=== PATIENT | female | born 1960 | race Caucasian/White ===

== ENCOUNTER 2016-12-04 14:14 | Observation (INO) | payer BC ==
[2016-12-04] MEDS ORDERED: Aspirin Low Dose CHEW TAB* 81 MG PO ONE (14:29)
--- NOTE | 2016-12-04 15:10 | RAD ---
Indication: Chest tightness, palpitations. History of tobacco use. Comparison: February 25, 2016 CT abdomen and July 07, 2014 chest radiograph. Technique: Upright AP 1452 hours Report: Large body habitus limits image quality. No alveolar consolidation, focal pulmonary lesion, pleural effusion, pneumothorax. The heart, pulmonary vasculature, and mediastinal contours are unremarkable. IMPRESSION: No evidence for acute intrathoracic disease.
[2016-12-04 15:31] LABS: Hematocrit 43 % (35-47); Hemoglobin 14.3 g/dl (12.0-16.0); Mean Corpuscular HGB Conc 33 g/dl (31-36); Mean Corpuscular Hemoglobin 29 pg (27-31); Mean Corpuscular Volume 89 fL (80-97); Mean Platelet Volume 7 um3 (7.4-10.4); Red Blood Count 4.89 10^6/ul (4.0-5.4); Red Cell Distribution Width 14 % (10.5-15); White Blood Count 8.6 10^3/ul (3.5-10.8)
[2016-12-04 15:46] LABS: Albumin 4.2 g/dL (3.2-5.2); BUN/Creatinine Ratio 18.6 (8-20); Calcium 9.3 mg/dL (8.6-10.3); EGFR African American 110.9 (>60); EGFR Non-African American 86.2 (>60); Potassium 3.9 mmol/L (3.5-5.0); Total Protein 7.3 g/dL (6.4-8.9)
[2016-12-04 15:47] LABS: Globulin 3.1 g/dL (2-4); Total Bilirubin 0.5 mg/dL (0.2-1.0); Troponin I 0.01 ng/mL (<0.04)
[2016-12-04 16:24] LABS: TSH (Thyroid Stimulating Horm) 1.55 mcIU/mL (0.34-5.60)
[2016-12-04] MEDS ORDERED: Ondansetron INJ* 2 MG/ML VIAL IV PRN (16:25)
[2016-12-04] MEDS ORDERED: Acetaminophen TAB* 325 MG PO PRN (16:29)
[2016-12-04 17:45] LABS: T4 7.47 mcg/mL (6.09-12.23)
--- NOTE | 2016-12-04 18:05 | ED ---
Ludwin Duncan Billy, scribed for Chi Segura MD on 12/04/16 at 1453 . Palpitations / Dysrhythmia - HPI Summary HPI Summary: Patient is a 56 year-old female coming to [facility] for evaluation of palpitations for the last few days. She has a history of palpitations, but she states that her current episodes have been accompanied with mild chest pressure. She also reports feeling lightheaded and mild SOB. She has been exerting herself, clearing shields/trees at home this week. She expressed concerns about high caffeine intake. - History of Current Complaint Chief Complaint: EDDysrhythmPalp Time Seen by Provider: 12/04/16 14:27 Hx Obtained From: Patient Onset/Duration: Gradual Onset, Lasting Days Timing: Intermittent Episodes Lasting: Severity Initially: Moderate Severity Currently: Moderate Character: Irregular Aggravating: Nothing Alleviating: Nothing Associated Signs & Symptoms: Lightheadedness, Chest Pain, Shortness of Breath - Allergy/Home Medications Allergies/Adverse Reactions: Allergies Allergy/AdvReac Type Severity Reaction Status Date / Time Azithromycin [From Zithromax] Allergy Unknown Verified 08/20/16 11:55 Reaction Details PMH/Surg Hx/FS Hx/Imm Hx Endocrine/Hematology History: Denies: Hx Diabetes Cardiovascular History: Denies: Hx Congestive Heart Failure, Hx Hypertension History: Denies: Hx Dialysis, Hx Renal Disease - Surgical History Surgery Procedure, Year, and Place: D&C, 2012, [facility] Infectious Disease History: Denies: Traveled Outside the [place] in Last 30 Days - Family History Known Family History: Positive: Other - colon cancer - Social History Alcohol Use: Rare Substance Use Type: Reports: None Hx Tobacco Use: Yes Smoking Status (MU): Unknown if Ever Smoked Review of Systems Negative: Fever, Chills Negative: Erythema Negative: Ear Ache Positive: Palpitations, Chest Pain Positive: Shortness Of Breath Negative: Abdominal Pain, Vomiting, Nausea Negative: dysuria, flank pain Negative: Myalgia, Edema Negative: Rash Neurological: Other - lightheaded All Other Systems Reviewed And Are Negative: Yes Physical Exam - Summary Physical Exam Summary: Constitutional: Well-developed, Well-nourished, Obese, Alert. (-) Distressed Skin: Warm, Dry HENT: Normocephalic; Atraumatic Eyes: Conjunctiva normal Neck: Musculoskeletal ROM normal neck. (-) JVD, (-) Stridor, (-) Tracheal deviation Cardio: Rate and rhythm irregular, Heart sounds normal; Intact distal pulses; The pedal pulses are 2+ and symmetric. Radial pulses are 2+ and symmetric. (-) Murmur Pulmonary/Chest wall: Effort normal. (-) Respiratory distress, (-) Wheezes, (-) Rales Abd: Soft, (-) Tenderness, (-) Distension, (-) Guarding, (-) Rebound Musculoskeletal: (-) Edema Lymph: (-) Cervical adenopathy Neuro: Alert, Oriented x3 Psych: Mood and affect Normal Triage Information Reviewed: Yes Vital Signs On Initial Exam: Initial Vitals Temp Pulse Resp BP Pulse Ox 97.8 F 84 18 155/89 98 12/04/16 14:16 12/04/16 14:16 12/04/16 14:16 12/04/16 14:16 12/04/16 14:16 Vital Signs Reviewed: Yes Diagnostics - Vital Signs Vital Signs Temp Pulse Resp BP Pulse Ox 12/04/16 14:16 97.8 F 84 18 155/89 98 - Laboratory Result Diagrams: 12/04/16 15:15 12/04/16 15:15 Lab Statement: Any lab studies that have been ordered have been reviewed, and results considered in the medical decision making process. - Radiology CXR Xray Interpretation: No Acute Changes Radiology Interpretation Completed By: Radiologist - EKG 1430 EKG Interpretation: NSR 70 bpm, no STEMI Course/Dx - Course Assessment/Plan: This is a 56 year-old female coming to [facility] for evaluation of palpitations. EKG in the ED shows NSR with no STEMI. CXR shows no acute findings. Patient was given ASA here in the ED. Patient care discussed with hospitalist services, who admitted the patient to their services. All medications reviewed this visit. - Diagnoses Provider Diagnoses: Dyspnea on exertion, rule out acute coronary syndrome, irregular pulse - Physician Notifications Discussed Care Of Patient With: David Sandoval NP (hospitalist) at 1600: accepts admission. Discharge - Discharge Plan Condition: Stable Disposition: ADMITTED TO [facility] documentation as recorded by the Ludwin watson Billy accurately reflects the service I personally performed and the decisions made by me, Chi Segura MD.
--- NOTE | 2016-12-04 19:36 | HP ---
ATTENDING PHYSICIAN'S ADDENDUM NOW INCLUDED ON THIS REPORT HISTORY AND PHYSICAL: DATE OF ADMISSION: 12/04/16 PRIMARY CARE PROVIDER: Dr. David Gould. ATTENDING PHYSICIAN WHILE IN THE HOSPITAL: Dr. Елена Javier * (report dictated by David Sandoval NP) CHIEF COMPLAINT: 1. Chest tightness. 2. Palpitations. HISTORY OF PRESENT ILLNESS: Ms. Patel is a 56-year-old female patient, she has only history of diverticulosis. She does have a former history of smoking. She comes in today stating that she has been having palpitations off and on for the last several weeks. She has had this in the past 2 years ago and underwent workup, according to her which was all negative, performed a stress test, echo, and a Holter monitor. She states that the palpitations have been getting worse over the last 3 to 4 days and in the last 24 to 48 hours, she has had constant chest tightness. She states that the tightness does not radiate into her jaw or down her arms, and no associated nausea or vomiting. No association of diaphoresis or shortness of breath. She says she has not had any recent illnesses. No recent nausea or vomiting. No diarrhea. No recent fevers. No recent trips or travel. There has been no leg tenderness or calf tenderness. The patient states that discomfort has been constant and has not gotten worse with any exertion. She states that she has been trying to clear some shields with her in last several days and since then she has had constant discomfort in her chest. She came in and was evaluated by Dr. Segura, who was concerned that this may represent acute coronary syndrome, so the hospitalist service was asked to evaluate for admission. PAST MEDICAL HISTORY: Significant for diverticulosis. PAST SURGICAL HISTORY: She has had: 1. Tonsillectomy. 2. D and C. HOME MEDICATIONS: Denied. ALLERGIES TO MEDICATIONS: Include AZITHROMYCIN. FAMILY HISTORY: Reviewed and noncontributory. She says that her parents did not have any history of coronary artery disease and both her parents are still alive and well. SOCIAL HISTORY: She is a former smoker. She quit about 15 to 20 years ago. She is , with children. Surrogate decision maker is her . REVIEW OF SYSTEMS: There is no documented fever. She denied having any significant weight change. There was no double vision. There was no ear discharge. No rhinorrhea. No sore throat. No thyroid enlargement. There was chest pressure from my HPI. There was no shortness of breath. No orthopnea. No nocturnal dyspnea. There was no abdominal pain. No nausea, no vomiting. No dysuria, no frequency. No loss of consciousness. No pruritus and no skin ulcerations. Review of 14 systems completed, all others negative. PHYSICAL EXAMINATION GENERAL: At this time, Ms. Patel is a 56-year-old female patient. She does not appear to be in any acute distress. She is morbidly obese. She is sitting in the ER stretcher. VITAL SIGNS: Reveal blood pressure of 149/81 with a pulse of 79, respirations 18, O2 sat 98%, and temperature 98.1. HEENT: Head is atraumatic, normocephalic. Eyes: EOMs are intact. Sclerae anicteric and not pale. Throat: Oral mucosa appears to be moist. No oropharyngeal erythema. NECK: Supple. LUNGS: Clear to auscultation bilaterally. No wheezes, rales, or rhonchi. HEART: Sounds S1 and S2. Regular rate and rhythm. No murmurs, rubs, or gallops. ABDOMEN: Soft, flat, and nontender. Bowel sounds are present. EXTREMITIES: Pulses were 2+ throughout. She is able to move all 4 extremities with 5/5 strength. NEUROLOGIC: The patient is awake, alert, and oriented x3. Tongue was midline. Bicycle Subassembler were equal. No gross focal deficits. SKIN: Grossly intact. DIAGNOSTIC STUDIES/LAB DATA: Revealed WBC of 8.6, RBC of 4.89, hemoglobin 14.3 , hematocrit of 43, platelet count of 307. Sodium 138, potassium 3.9, chloride 105, bicarb 26, BUN 13, creatinine 0.70, glucose 86, lactate 0.7, calcium 9.3. Total bili 0.5, AST 13, ALT 11, alk phos 75. Troponin 0.01. Albumin of 4.2. She had a chest x-ray obtained today, which revealed no evidence for acute intrathoracic disease. The EKG shows a normal sinus rhythm, rate of 70. No ST elevations or T-wave inversions were noted. Old medical records were reviewed. ASSESSMENT AND PLAN: Ms. Patel is a 56-year-old female patient, coming into the ER today with complaints of chest discomfort, which had been constant for 3 days. She was evaluated in the ED, there was concern that this might represent acute coronary syndrome and the hospitalist service was asked to evaluate for admission. She will be admitted under observation status for: 1. Chest pain. At this point, again the story is atypical, she has one known risk factor, former smoker. I think at this point, because she has been having palpitations, I would like to monitor her overnight on telemetry, cycle her troponins, I am going to go ahead and do a stress test in the morning and we will continue to follow. If this is negative, she will follow up with her primary and get set up for a Holter monitor and an echo if they are deemed appropriate. I did order aspirin daily and she received one in the ER. 2. Question of hypertension. She states that her blood pressure has been creeping up in her own words. The blood pressure here is 149/81, it has been in the 150s, we will monitor, and if we need to, we will start her on antihypertensive and she can follow with her primary. 3. History of diverticulosis, not an active issue. She can follow with the primary. 4. DVT prophylaxis. She is moderate risk, will be placed on heparin subcu. 5. Code status. Full code. 6. Fluids, electrolytes, and nutrition. She can have a heart-healthy diet and she will be n.p.o. after midnight. TIME SPENT: On this admission 60 minutes, greater than half the time was spent [id number] with the patient obtaining my history and physical; other half the time was spent going over the plan of care with the patient and implementing the plan of care. I did discuss the plan of care with my attending, Dr. Javier; she is in agreement. DAVID SANDOVAL NP ADDENDUM: Ms. Patel is a 56-year-old female, who presented to the hospital with 3 days' complaints of chest pain. Her EKG is unremarkable and troponin is negative. The patient is going to be placed on observation for stress test in the morning. For further details of the patient's presentation and plan, please see history and physical dictated by David Sandoval NP, on 12/04/16, with which I agree. ЕЛЕНА JAVIER MD CC: Dr. David Gould* [id number]/CPS #: [id number]/CPS #: [id number] HERMILA
--- NOTE | 2016-12-04 20:50 | HP ---
HISTORY AND PHYSICAL:* ADDENDUM: Ms. Patel is a 56-year-old female, who presented to the hospital with 3 days' complaints of chest pain. Her EKG is unremarkable and troponin is negative. The patient is going to be placed on observation for stress test in the morning. For further details of the patient's presentation and plan, please see history and physical dictated by David Sandoval NP, on 12/04/16, with which I agree. [id number]/[facility] #: [id number] HERMILA
[2016-12-04] MEDS: Heparin VIAL(*) 5000 UNITS/ML VIAL (FIVE THOUSAND) SUBCUT SCH (21:36)
[2016-12-05 05:02] LABS: Hematocrit 41 % (35-47); Hemoglobin 13.5 g/dl (12.0-16.0); Mean Corpuscular HGB Conc 33 g/dl (31-36); Mean Corpuscular Hemoglobin 29 pg (27-31); Mean Corpuscular Volume 89 fL (80-97); Mean Platelet Volume 7 um3 (7.4-10.4); Red Blood Count 4.61 10^6/ul (4.0-5.4); Red Cell Distribution Width 14 % (10.5-15); White Blood Count 9.7 10^3/ul (3.5-10.8)
[2016-12-05 05:21] LABS: BUN/Creatinine Ratio 17.6 (8-20); Calcium 9.1 mg/dL (8.6-10.3); EGFR Non-African American 80.9 (>60); HDL Cholesterol 36.4 mg/dL; Potassium 3.8 mmol/L (3.5-5.0)
[2016-12-05] MEDS: Heparin VIAL(*) 5000 UNITS/ML VIAL (FIVE THOUSAND) SUBCUT SCH ×3 (06:04→20:51)
[2016-12-05] MEDS: Aspirin Low Dose CHEW TAB* 81 MG PO SCH (09:13)
--- NOTE | 2016-12-05 16:05 | PN ---
Subjective Date of Service: 12/05/16 Interval History: This is an otherwise healthy but obese 56 yo female who presented with complaints of chest tightness and palpitations yesterday. Patient reports similar symptoms a couple of years ago and had a reportedly negative workup at that time. Patient was admitted for stress testing. Unfortunately, only the resting portion was completed today and due to her size will need to stay for the exercise portion tomorrow. Patient reported some mild palpitations last night which did not correspond to changes on telemetry at that time. She has otherwise been asx today. Objective Active Medications: Acetaminophen (Tylenol Tab*) 650 mg PO Q6H PRN PRN Reason: FEVER/PAIN Aspirin (Aspirin Low Dose Tab*) 81 mg PO DAILY [facility] Last Admin: 12/05/16 09:13 Dose: 81 mg Heparin Sodium (Porcine) (Heparin Vial(*)) 5,000 units SUBCUT Q8HR [facility] Last Admin: 12/05/16 06:04 Dose: Not Given Ondansetron HCl (Zofran Inj*) 4 mg IV Q6H PRN PRN Reason: NAUSEA Vital Signs: Temp Pulse Resp BP Pulse Ox 98.4 F 72 16 149/96 95 12/05/16 14:47 12/05/16 14:47 12/05/16 14:47 12/05/16 14:47 12/05/16 14:47 Oxygen Devices in Use Now: None Appearance: Well appearing, in NAD Neck: NL Appearance and Movements; NL JVP Respiratory: Symmetrical Chest Expansion and Respiratory Effort, Clear to Auscultation Cardiovascular: NL Sounds; No Murmurs; No JVD, RRR Abdominal: NL Sounds; No Tenderness; No Distention Extremities: No Edema Skin: No Rash or Ulcers Neurological: Alert and Oriented x 3 Result Diagrams: 12/05/16 04:30 12/05/16 04:30 Diagnostic Imaging: EKG - NSR CXR - NAD Assess/Plan/Problems-Billing Assessment: This is an otherwise healthy but obese 56 yo female who presented with c/o palpitations. - Patient Problems (1) Palpitations Comment: No telemetry changes, NSR on EKG No lab abnormalities, trop neg x 3 Reportedly nl prior w/u for similar symptoms Pend stress portion of stress test (2) Morbid obesity Comment: BMI 43 (3) Full code status (4) DVT prophylaxis Status and Disposition: Observation. Anticipate discharge tomorrow following stress test
[2016-12-06] MEDS: Heparin VIAL(*) 5000 UNITS/ML VIAL (FIVE THOUSAND) SUBCUT SCH (05:47)
[2016-12-06] MEDS: Aspirin Low Dose CHEW TAB* 81 MG PO SCH (11:26)
--- NOTE | 2016-12-06 12:17 | RAD ---
Edited for charges. INDICATION: Chest pain. COMPARISON: There are no prior studies available for comparison. Technique: A stress myocardial perfusion study was performed on December 06, 2016. Under the direction of Dr. Marvin, the patient was exercised to a peak heart rate of 141 beats per minute which was 91% of the maximum predicted heart rate. Subsequently the patient was given intravenous injection of 25.6 mCi of technetium 99m tetrofosmin and the heart was imaged in multiple projections. A resting study was performed on December 05, 2016. The patient was given an intravenous injection of 25.3 mCi of technetium 99m tetrofosmin and the heart was imaged in multiple projections. Images were reconstructed in the axial, sagittal and coronal planes and in a 3- D format. FINDINGS: There appears to be normal wall motion and myocardial thickening. The left ventricular ejection fraction was calculated to be 63% after stress and 62% after rest.. Review of the images demonstrates mild decreased activity in the anterior wall on both the post exercise and resting images which resolves on the attenuation corrected images most consistent with artifact. There is otherwise normal distribution of radiopharmaceutical. IMPRESSION: NO EVIDENCE FOR INFARCT OR ISCHEMIA. ASSESSMENT: Low risk. Based on imaging criteria from ACC/AHA 2002 Guideline Update for the Management of Patients With Chronic Stable Angina Table 23. Noninvasive Risk Stratification. MTDD
[2016-12-06 12:29] VITALS: BP 120/82
--- NOTE | 2016-12-06 21:47 | DS ---
DISCHARGE SUMMARY: DATE OF ADMISSION: 12/04/16 DATE OF DISCHARGE: 12/06/16 PRIMARY CARE PROVIDER: Dr. Gould. DISCHARGING PROVIDER: SIMRAN Ramos SUPERVISING PHYSICIAN: DO Paloma Kim (DICTATED BY SIMRAN RAMOS) PRIMARY DISCHARGE DIAGNOSIS: Palpitations. SECONDARY DISCHARGE DIAGNOSIS: Obesity. DISCHARGE MEDICATIONS: None. MEDICATION CHANGES: None. HOSPITAL IMAGIN. Chest x-ray, 12/04/16, demonstrates no acute process. 2. Nuclear stress test is read as a low risk study without evidence for infarct or ischemia. 3. EKG demonstrates a normal sinus rhythm on 3 separate occasions. HOSPITAL COURSE: This is an otherwise healthy, but morbidly obese 56-year-old female who presented to the emergency department with complaints of palpitation and chest tightness. The patient had been engaging in heavy physical activity for the last several days, but her symptoms occurred while at rest. Denied associated dyspnea. Initial EKG showed a normal sinus rhythm and her initial labs were unremarkable including a negative D-Dimer and troponin without electrolyte abnormalities. The patient was subsequently admitted to observation status on continuous telemetry monitoring and underwent serial troponins. There were no dysrhythmias appreciated on telemetry during her hospital stay and serial troponins remained negative. The patient underwent a nuclear stress testing and due to internal conflicts, this test was delayed for approximately 24 hours, but eventually was recognized as a low-risk study. The patient did have a couple of episodes of palpitations, but lesser severity than what brought her in during her hospital stay and there was nothing appreciated on telemetry monitoring at that time. DISPOSITION: The patient is being discharged to home without new home medications. Recommend followup with her primary care provider regarding this hospital admission and consider an event monitor in the future. Of note, the patient has had similar symptoms in the past and had reportedly normal workup including echocardiogram and Holter monitor. SIMRAN RAMOS CC: Dr. Gould* [id number]/[facility] #: [id number] [facility]
== END 2016-12-06 13:02 | disposition home or self-care (01) ==
LOC: ED 14:14 → MEDTELE 16:23
PROVIDERS: ADMIT Internal Medicine; ATTEND Hospitalist
DX: R00.2 Palpitations (principal); E66.01 Morbid (severe) obesity due to excess calories; Z68.41 Body mass index [BMI] 40.0-44.9, adult; R06.02 Shortness of breath; K57.90 Diverticulosis of intestine, part unspecified, without perforation or abscess without bleeding; Z87.891 Personal history of nicotine dependence; Z88.1 Allergy status to other antibiotic agents; Z79.899 Other long term (current) drug therapy
CPT/HCPCS: 36415; 71010; 78452; 80048; 80053; 80061; 83036; 83605; 84436; 84443; 84484; 85025; 85379; 85610; 93005; 93017; 96372; 99284; A9270-GY; A9502; G0378; J1644

== ENCOUNTER 2017-12-22 02:12 | Emergency (ER) | payer BC ==
[2017-12-22 02:57] LABS: ABS Basophils 0.1 10^3/ul (0-0.2); ABS Eosinophils 0.2 10^3/ul (0-0.6); ABS Lymphocytes 2.7 10^3/ul (1.0-4.8); ABS Monocytes 0.7 10^3/ul (0-0.8); ABS Neutrophils 6.2 10^3/ul (1.5-7.7); ABS Nucleated RBC 0 10^3/ul; Eosinophil % 2.4 % (0-6); Hematocrit 42 % (35-47); Lymphocyte % 26.9 % (25-47); Mean Corpuscular HGB Conc 33 g/dl (31-36); Mean Corpuscular Hemoglobin 30 pg (27-31); Mean Corpuscular Volume 89 fL (80-97); Mean Platelet Volume 6.9 um3 (7.4-10.4); Nucleated Red Blood Cells % 0.1; Platelet Count 301 10^3/ul (150-450); Red Cell Distribution Width 14 % (10.5-15); White Blood Count 9.9 10^3/ul (3.5-10.8)
[2017-12-22 03:27] LABS: EGFR Non-African American 74.7 (>60)
--- NOTE | 2017-12-22 04:00 | ED ---
Jorge Luis Duncan Julia, scribed for Rodolfo Morris MD on 12/22/17 at 0233 . Palpitations / Dysrhythmia - HPI Summary HPI Summary: This patient is a 57 year old M presenting to [facility] with a chief complaint of left anterior chest pressure since yesterday with a zinging sensation in her left jaw and left arm. Patient denies SOB and HOLGUIN. She additionally reports intermittent heart palpations that she experiences at baseline but has increased over the past few weeks. Palpatations are described as pauses. She reports recent strenuous yard work. She also reports increased stress. - History of Current Complaint Chief Complaint: EDDysrhythmPalp Time Seen by Provider: 12/22/17 02:23 Hx Obtained From: Patient Onset/Duration: Lasting Days Character: Skipped Beats Aggravating: Other - stress Associated Signs & Symptoms: Chest Pain Related History: Similar Episode/Dx as - palpitations - Allergy/Home Medications Allergies/Adverse Reactions: Allergies Allergy/AdvReac Type Severity Reaction Status Date / Time azithromycin [From Zithromax] AdvReac Unknown Verified 12/22/17 02:37 Reaction Details PMH/Surg Hx/FS Hx/Imm Hx Endocrine/Hematology History: Denies: Hx Diabetes Cardiovascular History: Denies: Hx Angina, Hx Congestive Heart Failure, Hx Coronary Artery Disease, Hx Hypercholesterolemia, Hx Hypertension, Hx Myocardial Infarction, Hx Valvular Heart Disease Respiratory History: Denies: Hx Asthma, Hx Chronic Obstructive Pulmonary Disease (COPD) History: Denies: Hx Dialysis, Hx Renal Disease Sensory History: Reports: Hx Contacts or Glasses Denies: Hx Hearing Aid Opthamlomology History: Reports: Hx Contacts or Glasses - Surgical History Surgery Procedure, Year, and Place: D&C, 2012, [facility] - Immunization History Date of Tetanus Vaccine: no Date of Influenza Vaccine: no Infectious Disease History: No Infectious Disease History: Denies: Traveled Outside the [place] in Last 30 Days - Family History Known Family History: Positive: Other - colon cancer - Social History Alcohol Use: Rare Substance Use Type: Reports: None Hx Tobacco Use: Yes Smoking Status (MU): Former Smoker Review of Systems Positive: Palpitations, Chest Pain Negative: Shortness Of Breath Neurological: Other - "zingling" to left jaw and left arm All Other Systems Reviewed And Are Negative: Yes Physical Exam - Summary Physical Exam Summary: Appearance: Well-appearing, Well-nourished, lying in bed comfortably Skin: Warm, dry, no obvious rash Eyes: sclera anicteric, no conjunctiva pallor ENT: mucous membranes moist, pharynx appears normal Neck: Supple, nontender Respiratory: Clear to auscultation, no signs of respiratory distress Cardiovascular: Occasional premature beats p. No murmurs. Normal distal pulses in tibial and radial bilaterally. Abdomen: Soft, nontender, normal active bowel sounds present Musculoskeletal: Normal, Strength/ROM Intact Neurological: A&Ox3, awake and alert, mentation is normal, speech is fluent and appropriate Psychiatric: affect is normal, does not appear anxious or depressed Triage Information Reviewed: Yes Vital Signs On Initial Exam: Initial Vitals Temp Pulse Resp BP Pulse Ox 98.0 F 84 20 185/103 99 12/22/17 02:15 12/22/17 02:15 12/22/17 02:15 12/22/17 02:15 12/22/17 02:15 Vital Signs Reviewed: Yes Diagnostics - Vital Signs Vital Signs Temp Pulse Resp BP Pulse Ox 12/22/17 02:15 98.0 F 84 20 185/103 99 - Laboratory Lab Results: Lab Results 12/22/17 12/22/17 12/22/17 Range/Units 02:45 02:45 02:45 WBC 9.9 (3.5-10.8) 10^3/ul RBC 4.70 (4.0-5.4) 10^6/ul Hgb 14.0 (12.0-16.0) g/dl Hct 42 (35-47) % MCV 89 (80-97) fL MCH 30 (27-31) pg MCHC 33 (31-36) g/dl RDW 14 (10.5-15) % Plt Count 301 (150-450) 10^3/ul MPV 6.9 L (7.4-10.4) um3 Neut % (Auto) 62.6 (38-83) % Lymph % (Auto) 26.9 (25-47) % [place] % (Auto) 7.2 H (0-7) % Eos % (Auto) 2.4 (0-6) % Baso % (Auto) 0.9 (0-2) % Absolute Neuts (auto) 6.2 (1.5-7.7) 10^3/ul Absolute Lymphs (auto) 2.7 (1.0-4.8) 10^3/ul Absolute Monos (auto) 0.7 (0-0.8) 10^3/ul Absolute Eos (auto) 0.2 (0-0.6) 10^3/ul Absolute Basos (auto) 0.1 (0-0.2) 10^3/ul Absolute Nucleated RBC 0 10^3/ul Nucleated RBC % 0.1 Sodium 140 (139-145) mmol/L Potassium 4.2 (3.5-5.0) mmol/L Chloride 106 (101-111) mmol/L Carbon Dioxide 27 (22-32) mmol/L Anion Gap 7 (2-11) mmol/L BUN 15 (6-24) mg/dL Creatinine 0.79 (0.51-0.95) mg/dL Est GFR ( Amer) 96.1 (>60) Est GFR (Non-Af Amer) 74.7 (>60) BUN/Creatinine Ratio 19.0 (8-20) Glucose 113 H (70-100) mg/dL Lactic Acid 1.2 (0.5-2.0) mmol/L Calcium 9.0 (8.6-10.3) mg/dL Total Bilirubin 0.30 (0.2-1.0) mg/dL AST 13 (13-39) U/L ALT 10 (7-52) U/L Alkaline Phosphatase 70 (34-104) U/L Troponin I 0.00 (<0.04) ng/mL Total Protein 6.7 (6.4-8.9) g/dL Albumin 4.0 (3.2-5.2) g/dL Globulin 2.7 (2-4) g/dL Albumin/Globulin Ratio 1.5 (1-3) Result Diagrams: 12/22/17 02:45 12/22/17 02:45 Lab Statement: Any lab studies that have been ordered have been reviewed, and results considered in the medical decision making process. - EKG 0241 Cardiac Rate: NL EKG Rhythm: Sinus Rhythm - at 74 BPM EKG Interpretation: see comparison EKG Comparison: Other - P waves, QRS complex, and T waves are within normal limits, T waves and intervals are normal, no ischemic changes. This is a normal EKG Course/Dx - Course Assessment/Plan: 57 y/o woman with morbid obesity, prior h/o palpitations presents with exacerbation of the latter. These are clearly premature beats, noted on exam and are of no consequence. However she also developed during the day some vague left upper chest discomfort felt to be very atypical for anginal type pain. EKG and trop are negative, pt is safe for discharge home at this point. - Diagnoses Provider Diagnoses: Atypical chest pain, Palpitations Discharge - Sign-Out/Discharge Documenting (check all that apply): Discharge/Admit/Transfer - Discharge Plan Condition: Good Disposition: HOME Patient Education Materials: Noncardiac Chest Pain (ED) Referrals: David Gould MD [Primary Care Provider] - - Billing Disposition and Condition Condition: GOOD Disposition: HOME The documentation as recorded by the Jorge Luis watson Julia accurately reflects the service I personally performed and the decisions made by me, Rodolfo Morris MD.
[2017-12-22 04:04] VITALS: BP 122/90
== END 2017-12-22 04:02 | disposition home or self-care (01) ==
LOC: ED 02:12
DX: R07.89 Other chest pain (principal); R00.2 Palpitations; E66.01 Morbid (severe) obesity due to excess calories; Z88.3 Allergy status to other anti-infective agents; Z87.891 Personal history of nicotine dependence
CPT/HCPCS: 36415; 80053; 83605; 84484; 85025; 93005; 99282

== ENCOUNTER 2019-06-26 17:04 | Emergency (ER) | payer BC ==
[2019-06-26 17:15] VITALS: BP 148/87
--- NOTE | 2019-06-26 17:40 | UC ---
Complaint Female HPI - HPI Summary HPI Summary: pain and burning with urination began this morning--no fevers chills nausea vomiting or back pain - History Of Current Complaint Chief Complaint: UCGU Stated Complaint: POSS UTI Time Seen by Provider: 06/26/19 17:10 Hx Obtained From: Patient ?: No Onset/Duration: Lasting Days - 1, Still Present Timing: Constant Pain Intensity: 3 Pain Scale Used: 0-10 Numeric Character: Burning Aggravating Factor(s): Urination Alleviating Factor(s): Nothing Associated Signs And Symptoms: Positive: Negative - Allergies/Home Medications Allergies/Adverse Reactions: Allergies Allergy/AdvReac Type Severity Reaction Status Date / Time azithromycin [From Zithromax] AdvReac Unknown Verified 06/26/19 17:15 Reaction Details Home Medications: Home Medications Magnesium 06/26/19 [History] Multivitamin [Multivitamins] 1 each PO DAILY 06/26/19 [History Confirmed ] PMH/Surg Hx/FS Hx/Imm Hx Previously Healthy: No Cardiovascular History: Hypertension - Surgical History Surgical History: Yes Surgery Procedure, Year, and Place: D&C, 2013, [facility], tonsillectomy - Family History Known Family History: Positive: Other - colon cancer - Social History Occupation: Works From/At Home Lives: With Family Alcohol Use: None Substance Use Type: None Smoking Status (MU): Former Smoker When Did the Patient Quit Smoking/Using Tobacco: 20 YRS AGO Review of Systems All Other Systems Reviewed And Are Negative: Yes Constitutional: Positive: Negative Skin: Positive: Negative Eyes: Positive: Negative ENT: Positive: Negative Respiratory: Positive: Negative Cardiovascular: Positive: Negative Gastrointestinal: Positive: Negative Genitourinary: Positive: Dysuria, Urgency Motor: Positive: Negative Neurovascular: Positive: Negative Musculoskeletal: Positive: Negative Neurological: Positive: Negative Psychological: Positive: Negative Is Patient Immunocompromised?: No Physical Exam Triage Information Reviewed: Yes Appearance: Well-Appearing, No Pain Distress, Well-Nourished Vital Signs: Initial Vital Signs Temp 100.4 F 06/26/19 17:11 Pulse 81 06/26/19 17:11 Resp 18 06/26/19 17:11 BP 148/87 06/26/19 17:11 Pulse Ox 99 06/26/19 17:11 Vital Signs Reviewed: Yes Eye Exam: Normal Eyes: Positive: Conjunctiva Clear ENT Exam: Normal ENT: Positive: Normal ENT inspection, Hearing grossly normal. Negative: Trismus , Muffled voice, Hoarse voice Dental Exam: Normal Neck exam: Normal Neck: Positive: Supple, Nontender Respiratory Exam: Normal Respiratory: Positive: Chest non-tender, No respiratory distress, No accessory muscle use Cardiovascular Exam: Normal Cardiovascular: Positive: RRR, Pulses Normal, Brisk Capillary Refill Abdominal Exam: Normal Abdomen Description: Positive: Nontender, Soft. Negative: CVA Tenderness (R), CVA Tenderness (L) Musculoskeletal Exam: Normal Musculoskeletal: Positive: Strength Intact, ROM Intact Neurological Exam: Normal Neurological: Positive: Alert, Muscle Tone Normal Psychological Exam: Normal Skin Exam: Normal Complaint Female Dx - Course Course Of Treatment: increase fluids, macrobid, pyridium, culture urine, follow bp with pcp - Differential Dx/Diagnosis Provider Diagnosis: UTI (urinary tract infection), Hypertension Discharge ED - Sign-Out/Discharge Documenting (check all that apply): Patient Departure All imaging exams completed and their final reports reviewed: No Studies - Discharge Plan Condition: Stable Disposition: HOME Prescriptions: Nitrofurantoin Monohyd/M-Cryst [Macrobid 100 mg Capsule] 100 mg PO BID #10 cap Phenazopyridine TAB* [Pyridium 100 mg TAB*] 100 mg PO TID PRN #9 tab PRN Reason: urinary pain/burning Patient Education Materials: Urinary Tract Infection in Women (ED), Hypertension (ED) Referrals: Nevin Bravo MD [Primary Care Provider] - 2 Weeks - Billing Disposition and Condition Condition: STABLE Disposition: Home
== END 2019-06-26 17:52 | disposition home or self-care (01) ==
LOC: UCEAST 17:04
DX: N39.0 Urinary tract infection, site not specified (principal); I10 Essential (primary) hypertension; Z88.1 Allergy status to other antibiotic agents; Z87.891 Personal history of nicotine dependence
CPT/HCPCS: 81003; 87077; 87086; 87186; 99212; G0463

== ENCOUNTER 2019-07-04 08:41 | Emergency (ER) | payer BC ==
[2019-07-04 08:59] VITALS: BP 144/94
--- NOTE | 2019-07-04 09:30 | UC ---
Complaint Female HPI - HPI Summary HPI Summary: Patient is a 5-year-old female presenting with frequency, urgency, and hematuria that she states began last night. Also notes "burning discomfort" with urination. Patient states she was seen here 8 days ago for same symptoms and treated with Macrobid for UTI caused by Escherichia coli. States her symptoms resolved while taking it but are now "back and worse than before." Patient denies abdominal pain and flank pain. Denies fever and chills. Denies nausea and vomiting. - History Of Current Complaint Chief Complaint: UCGU Stated Complaint: UTI Hx Obtained From: Patient Onset/Duration: Sudden Onset Severity Currently: Mild Pain Intensity: 1 Pain Scale Used: 0-10 Numeric Associated Signs And Symptoms: Negative: Fever, Back Pain, Nausea, Vomiting(# Of Episodes =) - Allergies/Home Medications Allergies/Adverse Reactions: Allergies Allergy/AdvReac Type Severity Reaction Status Date / Time nitrofurantoin Allergy See Comment Verified 07/04/19 08:55 azithromycin [From Zithromax] AdvReac Unknown Verified 07/04/19 08:53 Reaction Details PMH/Surg Hx/FS Hx/Imm Hx Cardiovascular History: Hypertension - Surgical History Surgical History: Yes Surgery Procedure, Year, and Place: D&C, 2013, [facility], tonsillectomy - Family History Known Family History: Positive: Other - colon cancer - Social History Lives: With Family Alcohol Use: None Substance Use Type: None Smoking Status (MU): Former Smoker When Did the Patient Quit Smoking/Using Tobacco: 20 YRS AGO, 1996 Review of Systems All Other Systems Reviewed And Are Negative: Yes Constitutional: Positive: Negative. Negative: Fever, Chills Respiratory: Positive: Negative Cardiovascular: Positive: Negative Gastrointestinal: Positive: Negative. Negative: Abdominal Pain, Vomiting, Nausea Genitourinary: Positive: Dysuria, Hematuria, Frequency, Urgency, Vaginal/Penile Burning. Negative: Vaginal/Penile Itching, Vaginal/Penile Discharge Musculoskeletal: Positive: Negative Physical Exam Triage Information Reviewed: Yes Appearance: Well-Appearing, No Pain Distress, Well-Nourished Vital Signs: Initial Vital Signs Temp 98.1 F 07/04/19 08:55 Pulse 83 07/04/19 08:55 Resp 16 07/04/19 08:55 BP 144/94 07/04/19 08:55 Pulse Ox 98 07/04/19 08:55 Lab Results 07/04/19 Range/Units 09:06 POC Urine Color Brown POC Urine Clarity Turbid POC Urine pH 6.0 (5-9) POC Ur Specif [place] 1.020 (1.010-1.030) POC Urine Protein 2+ A (Negative) POC Ur Glucose (UA) Negative (Negative) POC Urine Ketones Negative (Negative) POC Urine Blood 3+ A (Negative) POC Urine Nitrite Negative (Negative) POC Urine Bilirubin Negative (Negative) POC Urine Urobilinogen 0.2 (Negative) POC U Leukocyte Esteras 3+ A (Negative) Vital Signs Reviewed: Yes Eyes: Positive: Conjunctiva Clear ENT: Positive: Hearing grossly normal Neck: Positive: Supple Respiratory Exam: Normal Respiratory: Positive: Lungs clear, Normal breath sounds, No respiratory distress Cardiovascular Exam: Normal Cardiovascular: Positive: RRR Abdominal Exam: Normal Abdomen Description: Positive: Nontender, Soft. Negative: CVA Tenderness (R), CVA Tenderness (L) Neurological: Positive: Alert Psychological: Positive: Age Appropriate Behavior Complaint Female Dx - Course Course Of Treatment: I treated patient with Bactrim and instructed to take pyridium prescribed from before if needed. Instructed to increase fluid intake and return or follow up if symptoms persist or do not resolve. Patient voiced understanding and agreed with treatment plan. - Differential Dx/Diagnosis Provider Diagnosis: UTI (urinary tract infection), Hypertension Discharge ED - Sign-Out/Discharge Documenting (check all that apply): Patient Departure All imaging exams completed and their final reports reviewed: No Studies - Discharge Plan Condition: Stable Disposition: HOME Prescriptions: Fluconazole 150 MG TAB* [Diflucan 150 MG TAB*] 300 mg PO SEE INSTRUCTIONS PRN # 2 tablet PRN Reason: Pruritis Sulfamethox/Trimethoprim DS* [Bactrim DS 800/160 TAB*] 1 tab PO BID #10 tab Patient Education Materials: Urinary Tract Infection in Women (ED) Referrals: Nevin Bravo MD [Primary Care Provider] - If Needed Additional Instructions: As discussed, take Bactrim as prescribed for your UTI. Increase your fluid intake. Follow up with your PCP if symptoms do not resolve within 7 days. Return or go to the ED with any new or worsening symptoms. - Billing Disposition and Condition Condition: STABLE Disposition: Home - Attestation Statements Provider Attestation: I was available for consult. This patient was seen by the [facility]. The patient was not presented to, seen by, or examined by me. -Mark
--- NOTE | 2019-07-06 16:04 | UC ---
- Progress Note Progress Note: Patient urine culture final with E. coli. Patient being treated with antibiotic that E. coli is sensitive to. No change in treatment necessary at this time Course/Dx - Diagnoses Provider Diagnoses: UTI (urinary tract infection), Hypertension Discharge ED - Sign-Out/Discharge Documenting (check all that apply): Post-Discharge Follow Up All imaging exams completed and their final reports reviewed: No Studies - Discharge Plan Condition: Stable Disposition: HOME Prescriptions: Fluconazole 150 MG TAB* [Diflucan 150 MG TAB*] 300 mg PO SEE INSTRUCTIONS PRN # 2 tablet PRN Reason: Pruritis Sulfamethox/Trimethoprim DS* [Bactrim DS 800/160 TAB*] 1 tab PO BID #10 tab Patient Education Materials: Urinary Tract Infection in Women (ED) Referrals: Nevin Bravo MD [Primary Care Provider] - If Needed Additional Instructions: As discussed, take Bactrim as prescribed for your UTI. Increase your fluid intake. Follow up with your PCP if symptoms do not resolve within 7 days. Return or go to the ED with any new or worsening symptoms. - Billing Disposition and Condition Condition: STABLE Disposition: Home
== END 2019-07-04 09:30 | disposition home or self-care (01) ==
LOC: UCEAST 08:41
DX: N39.0 Urinary tract infection, site not specified (principal); I10 Essential (primary) hypertension; Z87.891 Personal history of nicotine dependence; Z88.1 Allergy status to other antibiotic agents
CPT/HCPCS: 81003; 87077; 87086; 87186; 99212; G0463